=== PATIENT | male | born 1985 | race Caucasian/White ===

== ENCOUNTER 2021-02-23 08:18 | Emergency (ER) | payer MEDICAID, SELFPAY ==
--- NOTE | 2021-02-23 08:22 | ED.GENADUL_ITS ---
Discharge Plan Disposition Patient Disposition: HOME Condition: Stable Discharge Details Clinical Impression: Dental infection Primary Care Provider: Unknown,Unknown ED Provider: Chris Bowen Home Meds and New Rx's Prescriptions: New amoxicillin 875 mg tablet 875 mg PO BID Qty: 20 RF: 0 Continued citalopram 40 MG tablet 40 mg PO DAILY RF: 0 mirtazapine 30 MG tablet 30 mg PO DAILY RF: 0 buspirone 10 MG tablet 10 mg PO BID RF: 0 Discharge Instructions Instructions: Dental Abscess (ED) Additional Instructions: Amoxicillin as directed. Epmz-uep-scjungf Tylenol and/or Motrin as directed for discomfort. Cool and/or warm compresses every 2 hours for 20 minutes. Salt water swish and spit as tolerated. Please watch for new or worsening symptoms and return to the ER for any concerns. I am giving you our dental list, please contact all the dentist on this list and be seen as soon as possible. Stand Alone Forms: Work Release Medical Decision Making 35-year-old male, former smoker, poor dentition at baseline, presenting with left lower jaw swelling and pressure over the past couple of days. Unable to be seen by a dentist. Clinically he appears well, nontoxic. He is afebrile, no evidence of trismus, airway is patent. There is no drainable abscess at the moment. Will place on amoxicillin twice daily for the next 10 days, give dental referral, and encourage sprr-lgz-iuphgnl medication such as Tylenol and/or Motrin. Standard discharge and return precautions given. Patient is comfortable with this plan and has no additional questions or concerns. Medical Records Medical records reviewed: Yes I reviewed the patient's medical records. HPI General Mode of arrival: ambulatory . Date/Time Provider Initiated Documentation: 02/23/21 08:22 . Limitations to Documentation: no limitations . Information obtained by: patient . HPI Narrative: This is a 35-year-old male, denies significant past medical history, quit smoking approximately 3 months ago, admits to poor dentition at baseline. He states that he is unable to see a dentist as they are all booking out too far in advance. He states over the past couple of days he has noticed some jaw and facial swelling and mild pressure to his left front molar. He denies any fever, difficulty speaking, swallowing, fou l taste in his mouth or pointing abscess. He has not taken any qpja-bsx-jzhincg medication for his symptoms. He is simply concerned that he may need an antibiotic. Related Data Home Medications Medication Instructions Recorded Confirmed buspirone 10 mg PO BID tab 03/01/14 citalopram 40 mg PO DAILY tab 03/01/14 mirtazapine 30 mg PO DAILY tab 03/01/14 amoxicillin 875 mg PO BID #20 tab 02/23/21 Previous Rx's Medication Instructions Recorded amoxicillin 875 mg PO BID #20 tab 02/23/21 Allergies Allergy/AdvReac Type Severity Reaction Status Date / Time No Known Allergies Allergy Unverified 02/23/21 08:28 Review of Systems Constitutional Constitutional: Denies fever(s) and Denies headache(s) ENT Ears, Nose, Mouth, and Throat: Denies headache(s), Denies neck pain and Denies sore throat Musculoskeletal Musculoskeletal: Denies neck pain Integumentary/Breasts Skin/Breast: Denies erythema Neurologic Neurologic: Denies headache(s) [facility] Medical History Anxiety Depression Insomnia related to another mental disorder Social History Smoking/Tobacco Use Status: Former Tobacco Use Smoking risk assessment performed?: Yes Alcohol Intake: never Drug use: Occasionally Substance use type: marijuana Do you feel safe at home: Yes Do you feel safe in your relationship?: Yes Exam Const General: cooperative, healthy appearing, comfortable and no acute distress Orientation: alert and awake HENWV Head: normal to inspection, normocephalic and atraumatic General nose exam: external nose normal Face and sinus: no tenderness Face images: 1. Mild left mandibular swelling. There is no warmth, erythema, induration or fluctuance. No pointing abscess. No tenderness. No evidence of trismus. No lymphadenopathy. Mouth: moist mucous membranes Teeth and gingiva: poor dentition Teeth image: 1. Point tenderness over tooth 19. Airway is patent. There is no pointing abscess. Poor dentition throughout Throat: posterior oropharynx normal Eyes General: appearance normal, both eyes and all related structures Conjunctivae: conjunctivae normal Neck Neck: normal visual inspection, full ROM, no lymphadenopathy, trachea midline, supple and nontender Resp Effort & Inspection: normal respiratory effort and able to speak in complete sentences Auscultation: clear to auscultation bilaterally Cardio Rate: regular rate Rhythm: regular rhythm Skin General skin exam: no rashes or lesions noted Neuro General: patient alert, patient awake, moves all extremities and no focal motor deficits Cognition: normal cognition Speech: speech normal Gait: normal gait Sensory Exam: no sensory deficits noted Psych Appearance: grossly normal Mental Status: mental status grossly normal
[2021-02-23 08:25] VITALS: BP 135/79; PULSE 67; RESP 18; O2SAT 98
[2021-02-23] MEDS: Amoxicillin 875 MG TAB PO (09:01)
== END 2021-02-23 09:02 | disposition home or self-care (01) ==
PROVIDERS: Emergency Provider Physician Assistant
DX: R22.0 Localized swelling, mass and lump, head (principal); K04.7 Periapical abscess without sinus
CPT/HCPCS: 99283

== ENCOUNTER 2021-05-25 15:46 | Emergency (ER) | payer MEDICAID, SELFPAY ==
[2021-05-25 15:50] VITALS: BP 182/82; PULSE 91; RESP 18; TEMP 36.8; O2SAT 97
--- NOTE | 2021-05-25 15:52 | ED.GENADUL_ITS ---
Discharge Plan Disposition Patient Disposition: HOME Condition: Stable Discharge Details Clinical Impression: Finger laceration, Open fracture of finger Primary Care Provider: Unknown,Unknown ED Provider: Ana Palma Home Meds and New Rx's Prescriptions: New cephalexin 500 mg capsule 500 mg PO QID 5 Days Qty: 20 RF: 0 Discharge Instructions Instructions: Finger Laceration (ED) Additional Instructions: Keep wound clean, dry, covered. Keep current dressing on for 24 hours then cover with bandaid or other sterile dressing after washing with running water. Monitor for signs of infection including redness, warmth, drainage, increased pain, fevers/chills. If you develop these or other new/worsening symptoms please seek care urgently once again. As we discussed, the flap may or may not fall off. If the flap falls off, it will likely be white and have no sensation. Please keep stitches in place, this will help allow skin underneath to heal from the inside out. Your x-ray shows possible fracture. Please continue with splint until reevaluated by orthopedics. Please take the antibiotics as prescribed. Please return in 10 days for reevaluation and suture removal. Discharge Data Discharge Date/Time-TO BE ENTERED AT DEPARTURE: 05/25/21 17:31 Medical Decision Making Patient is a pleasant ambidextrous 35 year old male presenting today with c/c of left thumb laceration. 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 Denies other injury at the time of the incident. On exam, patient appears anxious and uncomfortable. He has a flap laceration that is near complete amputation to distal left thumb. Skin blanched. No FB or debris noted. this does involve the nail. Patient and I discussed digital block. Discussed risks/benefits, he voices udnerstanding and wishes to proceed. Digital block was performed with good relief of pain. FINDINGS: Bones/joints: Transverse irregular lucency through the shaft of the distal phalanx of the 1st digit compatible with fracture. Soft tissues: Linear lucency through the soft tissues of the tip of the 1st digit compatible with history of laceration. IMPRESSION: 1. Transverse irregular lucency through the shaft of the distal phalanx of the 1st digit compatible with fracture. 2. Linear lucency through the soft tissues of the tip of the 1st digit compatible with history of laceration. Discussed findings with the patient. We discussed treatment options. I am concerned about the viability of the flap and discussed htis at length. In an attempt to save the flap as well as create a biological dressing, will stitch in place. He voices understanding and wishes to prceed. Please see procedure note. Wound was copiously irrigated and explored to base in a bloodless fiedl with tourniquet, no FB or debris noted. Patient tolerated this well. Dressing applied. Discussed wound care in depth. He will f/u with orthopedics regarding open fracture of distal phalanx. Advised on possible outcomes of the flap laceration. Strict return precautions were discussed. Splint applied which he will use until evaluated by orthopedics. Will start on abx for open fx. All of his questions and cocnerns were addressed, he is in agreement with this plan. HPI General Mode of arrival: ambulatory . Date/Time Provider Initiated Documentation: 05/25/21 15:52 . Limitations to Documentation: no limitations . Information obtained by: patient and RN notes reviewed . History of Present Illness 35 year old M presents to the emergency department with the chief complaint of left thumb laceration, described as severe, with intensity rated at 8. Quality is described as stabbing, and is localized to the left and upper extremity. Patient reports no radiation. Patient started expe riencing this minute(s) and it has been constant. Immobilization improves symptom(s), Movement worsens symptoms . Patient notes no other symptoms.. Patient did receive the following treatments prior to arrival, none Related Data Home Medications Medication Instructions Recorded Confirmed cephalexin 500 mg PO QID 5 Days #20 cap 05/25/21 Previous Rx's Medication Instructions Recorded cephalexin 500 mg PO QID 5 Days #20 cap 05/25/21 Allergies Allergy/AdvReac Type Severity Reaction Status Date / Time No Known Allergies Allergy Unverified 05/25/21 15:49 General PATRICIA: 4 Review of Systems Constitutional Constitutional: Reports as per HPI, Denies chills and Denies fever(s) Musculoskeletal Musculoskeletal: Reports as per HPI and Reports numbness Integumentary/Breasts Skin/Breast: Reports as per HPI Neurologic Neurologic: Reports as per HPI and Reports numbness PFSH Medical History Anxiety Depression Insomnia related to another mental disorder Social History Smoking/Tobacco Use Status: Former Tobacco Use Smoking risk assessment performed?: Yes Alcohol Intake: never Drug use: Occasionally Substance use type: marijuana Do you feel safe at home: Yes Do you feel safe in your relationship?: Yes Exam Const General: cooperative, healthy appearing, uncomfortable, no acute distress, well developed and anxious Nutritional Appearance: average body habitus and well nourished Orientation: alert and awake Resp Effort & Inspection: normal respiratory effort, able to speak in complete sentences and no respiratory distress Cardio Rate: regular rate Rhythm: regular rhythm Skin Trauma: laceration Neuro General: patient alert and patient awake Cognition: normal cognition Speech: speech normal Gait: normal gait Sensory Exam: no sensory deficits noted Extrem Hand/finger images: 1. Laceration runs horizontally across the thumb. Distal to the wound, skin is blanched. Sensation intact around this but not over the flap itself. Concerned for viability. Small amount of active bleeding. Psych Appearance: grossly normal and well kempt Mental Status: mental status grossly normal Speech and Movement: speech and movement normal Procedures Laceration Laceration 1: Site: hand Side (If applicable): left Size (cm): 4.5 Description: flap Depth: simple, single layer Local Anesthetic: Lidocaine 1% Amount of anesthesia used (mL): 10 Pre-repair: wound explored, irrigated extensively and deep structures intact Skin layer closed with: nylon Size (cm): 4-0 and 6-0 Number of sutures: 7 Technique: simple, interrupted
--- NOTE | 2021-05-25 16:00 | DI.RAD_ITS ---
Exam(s) XR THUMB LT EXAM: XR THUMB LT CLINICAL HISTORY: distal tip laceration TECHNIQUE: COMPARISON: No exams were available for comparison FINDINGS: Three views were obtained. There is bandage material which obscures bony detail. Possible nondispla christiano fracture of the tuft of the distal phalanx of the thumb noted, repeat radiographs without bandage material requested to differentiate fracture from artifact. IMPRESSION: RADIATION DOSE DELIVERED: Total DLP
--- NOTE | 2021-05-25 17:09 | DI.VRAD_ITS ---
PROCEDURE INFORMATION: Exam: XR Left Finger(s) Exam date and time: 05/25/2021 4:05 PM Age: 35 years old Clinical indication: Injury or trauma; Other: Laceration; Finger; Left; Thumb TECHNIQUE: Imaging protocol: XR Left fingers. Views: Minimum 2 views. COMPARISON: No relevant prior studies available. FINDINGS: Bones/joints: Transverse irregular lucency through the shaft of the distal phalanx of the 1st digit compatible with fracture. Soft tissues: Linear lucency through the soft tissues of the tip of the 1st digit compatible with history of laceration. IMPRESSION: 1. Transverse irregular lucency through the shaft of the distal phalanx of the 1st digit compatible with fracture. 2. Linear lucency through the soft tissues of the tip of the 1st digit compatible with history of laceration. Dictated and Authenticated by: Reggie Mustafa MD. Ordering:LANDY Perez MD
== END 2021-05-25 17:31 | disposition home or self-care (01) ==
PROVIDERS: Emergency Provider Physician Assistant
DX: S62.522B Displaced fracture of distal phalanx of left thumb, initial encounter for open fracture (principal); W26.0XXA Contact with knife, initial encounter; Y99.0 Civilian activity done for income or pay
CPT/HCPCS: 12002; 90471; 99284; 73140

== ENCOUNTER 2024-06-19 03:45 | Emergency (ER) | payer MEDICAID, SELFPAY ==
[2024-06-19] VITALS (50 sets, daily range): BP systolic 39–208; BP diastolic 23–129; PULSE 74–128; RESP 11–47; TEMP 33.1–35; O2SAT 97–99
--- NOTE | 2024-06-19 03:30 | RT.EKG_ITS ---
APPROVED REPORT Exam: Resting ECG Reason for Exam: ROSC Patient Location: E HR:97 bpm ECG Measurements Heart Rate 97 AXIS AK 130 P 71 QRSd 101 QRS 80 QT 412 T 81 QTc 523 Conclusion Sinus rhythm...normal P axis, V-rate 60- 99 ST elev, probable normal early repol pattern...ST elevation, age<55 Prolonged QT interval...QTc >488mS no ST segment or T wave abnormalitites to suggest occlusive [place]
--- NOTE | 2024-06-19 03:30 | DI.RAD_ITS ---
Exam(s) XR PORTABLE CHEST AP POST LINE EXAM: XR PORTABLE CHEST AP POST LINE CLINICAL HISTORY: ETT check TECHNIQUE: 2D digital imaging was performed. COMPARISON: No exams were available for comparison FINDINGS: The exam is limited by overlying monitoring leads. An endotracheal tube projects at the level of the clavicles. A left-sided central line tip projects in the upper right atrium. LUNGS: Grossly clear. No pleural abnormality seen. HEART: Normal size. AORTA: Normal diameter. BONES: Unremarkable for age. Soft tissues: Unremarkable. IMPRESSION: Status post placement of endotracheal tube and central line. DATA REPOSITORY: RADIATION DOSE DELIVERED:
--- NOTE | 2024-06-19 03:30 | DI.CT_ITS ---
Exam(s) CT HEAD CERVICAL SPINE WO EXAM: CT HEAD CERVICAL SPINE WO CLINICAL HISTORY: ROSC. TECHNIQUE: Imaging Protocol: Axial computed tomography images with coronal and sagittal reformatted images were created and reviewed COMPARISON: CT CT CHEST PE ABD PELVIS W from 06/19/2024 FINDINGS: Head CT Ventricles and Extra axial spaces: Normal in size and morphology for the patient's age. Hemorrhage: None. Cerebral parenchyma: No evidence of mass. Loss of normal lindsay-white differentiation could indicate d iffuse cerebral edema which could be secondary to hypoxia. Midline shift: None. Brainstem/Cerebellum: Normal. Calvarium: Normal. Visualized Paranasal sinuses/Mastoids: Clear. Soft tissues: Unremarkable. Cervical Spine CT BONES: Vertebral body heights are maintained. Alignment is normal. There is no evidence of acute frac ture. No significant degenerative disc changes and facet degenerative changes are seen . SOFT TISSUES: No paraspinal hematoma. The airway appears intact. No pneumothorax is seen at the lung apices. IMPRESSION: Head CT: Limited exam due to lack of pre contrast images. Diffuse cerebral edema is suspected. C-spine CT: no acute abnormality. RADIATION DOSE DELIVERED: 1,276.97mGy.cm Total DLP DATA REPOSITORY: All CT scans at this facility are submitted to the National Radiology Data Registry (NRDR) Dose Index Registry (DIR) with the [employer] (A[employer]). RADIATION OPTIMIZATION: All CT scans at this facility use at least one of these dose optimization te chniques: automated exposure control; mA and/or kV adjustment per patient size (includes targeted exa ms where dose is matched to clinical indication); or iterative reconstruction.
--- NOTE | 2024-06-19 03:33 | DI.CT_ITS ---
Exam(s) CT CHEST PE ABD PELVIS W EXAM: CT CHEST PE ABD PELVIS W CLINICAL HISTORY: ROSC. TECHNIQUE: Imaging Protocol: Axial computed tomography images with coronal and sagittal reformatted images were created and reviewed CONTRAST MATERIAL: Intravenous: Omnipaque 350 Contrast volume:100 ml Oral: / no COMPARISON: CR,XR XR PORTABLE CHEST AP POST LINE from 06/19/2024 FINDINGS: CHEST: Exam is somewhat limited by artifact by patient arm position. Tracheobronchial tree: Patent. Endotracheal tube in place 4 cm above the juana. Pulmonary parenchyma: Posterior dependent changes. Mild upper lobe ground-glass opacities, greater o n the left could indicate pneumonitis versus pulmonary edema.. Mild apical emphysematous changes. M ild apical scarring. Pleura: No effusion or pneumothorax. Mediastinum: Within normal limits. Aorta: Thoracic portion non-dilated. Pulmonary arteries: No visible emboli. Heart: No pericardial effusion. A left-sided central venous catheter is in place with the tip at t he junction of the SVC and right atrium. Bones: Unremarkable for age. No lytic or blastic lesions.No compression fractures. Soft tissues: Unremarkable. ABDOMEN and PELVIS: Liver: Periportal edema. Heterogeneous enhancement. No measurable mass. Gallbladder and biliary tract: No evidence of stones or wall thickening. No biliary dilatation. Pancreas: Normal density, no abnormal calcifications or inflammatory process. Spleen: Normal. Kidneys: Normal size, contour and axis. No radiodense stones. No obstructive uropathy. No suspicious masses seen. Adrenal glands: No masses seen. Aorta: Abdominal portion non-dilated. Lymph nodes: Within normal limits. Soft tissues: Unremarkable. Bladder: Morejon catheter in place. Bowel: Enhancement of small bowel wall which could be secondary to hypotension. No obstruction or kasey wel wall thickening. Peritoneal cavity: No ascites. No focal collection. No mesenteric inflammatory response. No free ai r. Bones: Unremarkable for age. Reproductive organs: Within normal limits. IMPRESSION: No evidence of pulmonary embolism. Posterior dependent changes in the lungs. Additional mild ground-glass opacities could represent pne umonitis versus pulmonary edema. No acute abnormality in the abdomen or pelvis. Enhancement of small bowel wall could be secondary to hypotension. Inhomogeneous enhancement of the liver is spur present as well. RADIATION DOSE DELIVERED: 551.82mGy.cm Total DLP DATA REPOSITORY: All CT scans at this facility are submitted to the National Radiology Data Registry (NRDR) Dose Index Registry (DIR) with the [employer] (ACR). RADIATION OPTIMIZATION: All CT scans at this facility use at least one of these dose optimization te chniques: automated exposure control; mA and/or kV adjustment per patient size (includes targeted exa ms where dose is matched to clinical indication); or iterative reconstruction.
[2024-06-19] MEDS: Normal Saline 1,000 ML 1000 ML IV (03:50)
[2024-06-19 03:59] LABS: BE (Venous) -17 mmol/L (-2-3); HCO3 (Venous) 16 mmol/L (23-28); O2 Sat (Venous) 98 %; TCO2 (Venous) 16 mmol/L (24-29); pO2 (Venous) 147 mmHg
--- NOTE | 2024-06-19 04:00 | RT.EKG_ITS ---
APPROVED REPORT Exam: Resting ECG Reason for Exam: code Patient Location: E HR:106 bpm ECG Measurements Heart Rate 106 AXIS RI 165 P 77 QRSd 111 QRS 82 QT 374 T 58 QTc 496 Conclusion Sinus tachycardia...rate> [address] depression, diffuse leads...ST <-0.03mV, ant/lat/inf Prolonged QT interval...QTc >488mS no ST segment or T wave abnormalitites to suggest occlusive [place]
[2024-06-19 04:04] LABS: Abs Immature Grans 0.57 10^3/uL (0.0-0.06); Absolute Basophil Count 0.06 10^3/uL (0.0-0.2); Absolute Eosinophil Count 0.12 10^3/uL (0.0-0.7); Absolute Lymphocyte Count 4.41 10^3/uL (1.2-3.4); Absolute Monocyte Count 0.27 10^3/uL (0.1-0.8); Absolute Neutrophil Count 4.27 10^3/uL (1.2-6.7); Basophils % 0.6 %; Eosinophils % 1.2 %; HCT 48.6 % (40.0-50.0); HGB 15.4 g/dL (13.5-17.5); Immature Grans % 5.9 %; Lymphocytes % 45.5 %; MCH 33.8 pg (27.0-33.0); MCHC 31.7 % (32.0-36.0); MCV 107 fL (80-95); MPV 9.3 fL (8.0-11.0); Monocytes % 2.8 %; Nucleated RBC 0.3 % (0.0-0.3); Platelet Count 272 10^3/uL (130-400); RBC 4.55 10^6/uL (4.36-5.78); RDW 11.3 % (11.8-14.1); RDW-SD 44.7 fL
[2024-06-19 04:05] LABS: Lactate 12.9 mmol/L (0.6-1.4); pCO2 (Venous) 76 mmHg (41-51); pH (Venous) 6.92 (7.31-7.41)
[2024-06-19] MEDS: Sodium Bicarbonate 50 MEQ/50 ML SYR IVP (04:05)
--- NOTE | 2024-06-19 04:15 | DI.RAD_ITS ---
Exam(s) XR PORTABLE CHEST AP POST LINE EXAM: XR PORTABLE CHEST AP POST LINE CLINICAL HISTORY: post line TECHNIQUE: 2D digital imaging was performed. COMPARISON: CR,XR XR PORTABLE CHEST AP POST LINE from 06/19/2024 FINDINGS: Exam is limited by overlying monitoring leads. An endotracheal tube is seen which lies at the level of the clavicles. A left sided central line is noted which projects in the upper right atrium. LUNGS: Grossly clear. No pleural abnormality seen. HEART: Normal size. AORTA: Normal diameter. BONES: Unremarkable for age. Soft tissues: Unremarkable. IMPRESSION: Status post placement of endotracheal tube and central line. DATA REPOSITORY: RADIATION DOSE DELIVERED:
[2024-06-19 04:28] LABS: Diff Comment RBC Morph Reviewed; Macrocytosis 1+
[2024-06-19] MEDS: Piperacillin/Tazobactam 3.375 GM VIAL (04:30)
[2024-06-19 04:35] LABS: ETHANOL BLOOD 26.3 mg/dL (<10)
[2024-06-19] MEDS: fentaNYL 1,000 MCG in Normal Saline 80 ML 7.5 MCG IV (04:36)
[2024-06-19 04:42] LABS: Acetaminophen < 2 ug/mL (10-30); Salicylate 4.8 mg/dL (<2.8)
[2024-06-19 04:44] LABS: ALT 609 U/L (16-63); Albumin 3.2 g/dL (3.4-5.0); Alkaline Phosphatase 79 U/L (46-116); Anion Gap 21.7 mmol/L (3-11); BUN 6 mg/dL (7-18); CO2 18.3 mmol/L (21.0-32.0); CREATININE 1.4 mg/dL (0.70-1.30); Calcium 8.7 mg/dL (8.5-10.1); Chloride 102 mmol/L (98-107); Estimated GFR 65.57 (mL/min/1.73m2); Glucose 126 mg/dL (74-106); Lipase 51 U/L (16-77); Magnesium 3.7 mg/dL (1.8-2.4); NT-proBNP 50 pg/mL (<300); Potassium 4.5 mmol/L (3.5-5.1); Sodium 142 mmol/L (136-145); Total Protein 6.5 g/dL (6.4-8.2); Troponin I 12 ng/L (4-76)
[2024-06-19 04:46] LABS: BE (Venous) -14 mmol/L (-2-3); HCO3 (Venous) 17 mmol/L (23-28); pCO2 (Venous) 57 mmHg (41-51); pO2 (Venous) 194 mmHg
[2024-06-19 04:46] LABS: Bilirubin Negative (Negative); Blood Large (Negative); Clarity Sl Cloudy (Clear); Glucose Negative (Negative); Ketones Negative (Negative); Leukocyte Esterase Negative (Negative); Nitrite Negative (Negative); Specific Gravity 1.025 (1.005-1.025)
[2024-06-19 04:50] LABS: pH (Venous) 7.08 (7.31-7.41)
[2024-06-19 04:51] LABS: Lactate 11.1 mmol/L (0.6-1.4)
[2024-06-19 05:01] LABS: O2 Sat (Venous) > 99 %
[2024-06-19 05:07] LABS: Troponin I 25 ng/L (4-76)
--- NOTE | 2024-06-19 05:08 | W.ED.GENAD ---
Discharge Plan Disposition Patient Disposition: Transfer-Acute Inpatient Care Specific Acute Inpt Facility: [facility] Condition: Critical Discharge Details Clinical Impression: Cardiac arrest, Anoxic brain injury, Metabolic acidosis, Shock Primary Care Provider: None,None ED Provider: Bobbi Subramanian Home Meds and New Rx's Prescriptions: No Action No Known Home Meds HPI General Mode of arrival: EMS. Date/Time Provider Initiated Documentation: 06/19/24 04:30. Limitations to Documentation: altered mental status. Information obtained by: EMS. HPI Narrative: Pt arrives as Eliseo Rose via EMS s/p cardiac arrest and ROSC. Per EMS, pt at home by lying down with vomit around him. Bystander CPR started, on fire department arrival pt was in aystole. Was given 4mg IN narcan, left distal femur IO placed. Given a total of 3 doses of code epinephrine by EMS as well as an addtional 2mg IO narcan. ROSC at 0319, sinus tachycardia at that time, initial BP 100/60. IGel placed; subsuqently displaced when moving patient and patient was then intubated with a 7.0 ETT with no medications. Total of 3 doses of 0.2mg 1:100,000 during transport for hypotension as well as 1L IVFB. Blood glucose for EMS 122. Last seen normal at 2200 last night. Related Data Home Medications ?Medication ?Instructions ?Recorded ?Confirmed Unknown [No Known Home Meds] 06/19/24 06/19/24 Allergies Allergy/AdvReac Type Severity Reaction Status Date / Time Unable to Assess Allergy Verified 06/19/24 05:44 General Stated Complaint: CodeBlue PATRICIA: 1 Review of Systems Narrative: UTO Exam Narrative Exam Narrative: General: Intubated, unresponsive. Head: Normocephalic, atraumatic Skin: No rashes, bruises, discolorations or abrasions. Neck: Trachea midline, ?No discolorations or edema. Neck supple. ENT: ?MMM.? Chest: No abrasions or ecchymosis. Chest symmetric with respirations. No crepitus. No step offs. Lungs are clear to auscultation bilaterally. Cardiac: ?RRR, no murmurs appreciated Resp: No respiratory distress. CTAB. Abd: ?Soft, non-distended, No ecchymosis or abrasions. : ?No suprapubic tenderness. Extremities: ?No deformities.? No peripheral edema. Left distal femur IO in place. Neurologic: GCS 3T. Pupils fixed, mid-dilated. Course Vital Signs Vital signs: Vital Signs Temperature 35.0 C L 06/19/24 04:28 Temperature 35.0 C L 06/19/24 04:28 Respiratory Effort Mechanically Ventilated 06/19/24 04:47 Pain Level 0 06/19/24 04:28 Lab/Test Results Lab/Test Results: Laboratory Tests Range/Units 06/19/24 06/19/24 06/19/24 03:55 04:28 04:42 WBC (4.4-10.8) 10^3/uL 9.70 RBC (4.36-5.78) 10^6/uL 4.55 Hgb (13.5-17.5) g/dL 15.4 Hct (40.0-50.0) % 48.6 MCV (80-95) fL 107 H MCH (27.0-33.0) pg 33.8 H MCHC (32.0-36.0) % 31.7 L RDW (11.8-14.1) % 11.3 L Plt Count (130-400) 10^3/uL 272 MPV (8.0-11.0) fL 9.3 Immature Gran % % 5.9 Neutrophils % % 44.0 Lymphocytes % % 45.5 Monocytes % % 2.8 Eosinophils % % 1.2 Basophils % % 0.6 Nucleated RBC % (0.0-0.3) % 0.3 Absolute Neutrophils (1.2-6.7) 10^3/uL 4.27 Absolute Lymphocytes (1.2-3.4) 10^3/uL 4.41 H Absolute Monocytes (0.1-0.8) 10^3/uL 0.27 Absolute Eosinophils (0.0-0.7) 10^3/uL 0.12 Absolute Basophils (0.0-0.2) 10^3/uL 0.06 RBC Morphology See Below Macrocytosis 1+ VBG pH (7.31-7.41) 6.92 L* 7.08 L* VBG pCO2 (41-51) mmHg 76 H* 57 H VBG pO2 mmHg 147 194 VBG HCO3 (23-28) mmol/L 16 L 17 L VBG Total CO2 (24-29) mmol/L 16 L VBG O2 Saturation % 98 > 99 VBG Base Excess (-2-3) mmol/L -17 L -14 L VBG Lactate (0.6-1.4) mmol/L 12.9 H* 11.1 H* Sodium (136-145) mmol/L 142 Potassium (3.5-5.1) mmol/L 4.5 Chloride (98-107) mmol/L 102 Carbon Dioxide (21.0-32.0) mmol/L 18.3 L Anion Gap (3-11) mmol/L 21.7 H BUN (7-18) mg/dL 6 L Creatinine (0.70-1.30) mg/dL 1.4 H Est GFR (CKD-EPI 2020) (mL/min/1.73m2) 65.57 Glucose (74-106) mg/dL 126 H Calcium (8.5-10.1) mg/dL 8.7 Magnesium (1.8-2.4) mg/dL 3.7 H Total Bilirubin (0.2-1.0) mg/dL 0.40 ALT (16-63) U/L 609 H Alkaline Phosphatase (46-116) U/L 79 Troponin I High Sens (4-76) ng/L 12 25 NT-Pro-B Natriuret Pep (<300) pg/mL 50 Total Protein (6.4-8.2) g/dL 6.5 Albumin (3.4-5.0) g/dL 3.2 L Lipase (16-77) U/L 51 Urine Color (Yellow) Yellow Urine Clarity (Clear) Sl Cloudy Urine pH (5-8) 7.0 Ur Specific Whitwell (1.005-1.025) 1.025 Urine Protein (Neg-Trace) mg/dL 100 H Urine Ketones (Negative) mg/dL Negative Urine Blood (Negative) Large H Urine Nitrite (Negative) Negative Urine Bilirubin (Negative) Negative Urine Urobilinogen (Up to 0.2) mg/dL 1.0 H Ur Leukocyte Esterase (Negative) Negative Urine Glucose (Negative) mg/dL Negative Salicylates (<2.8) mg/dL 4.8 Acetaminophen (10-30) ug/mL < 2 Ethyl Alcohol (<10) mg/dL 26.3 H Procedures Central Line Placement Left IJ: Time Out Performed: Yes Patient Placed on Monitor/Pulse Ox: Yes MD Prep: mask, gown and gloves Central Line Prep: Chlorhexidine scrub Ultrasound Used for Placement: Yes Central Line Lumen Inserted: triple Post Procedure: good blood return, all ports aspirated, flushed, capped and sutured in place with 2-0 silk Post Procedure X-Ray: tip of catheter in good position Patient Tolerated Procedure: well Complications: none Medical Decision Making 38yo M no previous medical hx arrives s/p cardiac arrest with ROSC in the field. Found unresponsive by his with vomitus present, LKN 2200 last night, reportedly had been feeling generally unwell the past few days with decreased PO intake. EMS: Pt initially in aystole, given 4mg IN narcan, 3 rounds of code-dose epinephrine and additional 2mg IO narcan through left femur IO, ROSC at 0319 with pt in sinus tachycardia with initial BP of 100/60. Igel placed after ROSC, displaced when patient moved and so was intubated with 7.0 ETT at that time. Received 3 doses of 0.2mg 1:100,000 epinephrine during transport for hypotension, as well as 1L IVFB. Blood glucose 122. -On arrival patient hypotensive; PIVs placed and patient started on epinephrine drip rapidly up-titrated to 30, as well as levophed which was up-titrated to 20. Received one amp of bicarb, additional 1L IVFB, central line placed in left IJ. GCS 3T, pupils fixed and mid-dilated. FAST negative, diffuse B-lines limit meaningful cardiac views. EKG with some slight ST elevations, overall not suggest of occlusive WI. Fingerstick blood glucose 120's. Bedside CXR shows adequate central line placement; ETT was advanced 2cm. Started on fentyl & propofol for sedation and transported to CT on vent 100% FiO2 RR18 [id number] PEEP 5, - CT with no large ICH, saddle pulmonary embolus, or abdominal free fluid on my view. Given history of malaise, vomitus, will cover for sepsis with zosyn/zyvox. -Labs as below, initial VBG with marked metabolic acidosis pH 6.9, lactate 12, CBC with no leukcotysosis or anemia, CMP with normal electrolytes, mildly elevated Cr at 1.4, and marked AST & ALT elevations at 1662 and 609. Mg also elevated at 3.7. Initial troponin and BNP normal. ETOH + at 26, tylenol and salicylate negative. UA suggestive of possible infection. Repeat EKG appears to be improving -BP rapidly improved and pressors with titrated off, CT head discussed with reading radiologist and concerning for diffuse anoxic brain injury. Given 2g IV keppra for seizure ppx. -Discussed with [facility] cardiology and ICU team; agree no STEMI/no indication for lytics, accepted to [facility] MICU under Dr. Dan. Recommended temperature management. Awaiting bed assignment -Pt subsequently noted to be hypertensive and tachycardiac with slight whole body tremors concerning for seizure. Given 8mg IV ativan, started on versed gtt. [facility] updated with concern for status epilepticus, advised 1mg/kg phenobarb which was given. -On reassessment tremors have ceased, though pt remains hypertensive and tachycardic. Propofol gtt@100, fentanyl @5, versed @0.4. VBG & lactate improving. -Transported via [facility] Imaging Data Radiologic Study: Imaging: CT Scan Radiologist's impression: Head: IMPRESSION: 1. Findings suggestive of acute hypoxic ischemic injury. 2. No acute intracranial hemorrhage Chest Abd/Pelvis: IMPRESSION: 1. No evidence of aortic dissection or pulmonary embolism. 2. Dependent atelectasis/infiltrate bilaterally and nonspecific ground-glass opacities which may reflect pulmonary edema. 3. Prominent enhancement of the small bowel which can be seen in the setting of hypotension. Lab Data Lab results reviewed: Yes I reviewed the patient's lab results. Labs: 06/19/24 04:28 Urine - Reflex from Ua Urine Culture - Pending 06/19/24 05:12 Blood Blood Culture - Pending 06/19/24 05:12 Blood Blood Culture - Pending Laboratory Tests Range/Units 06/19/24 06/19/24 06/19/24 03:55 04:28 04:42 WBC (4.4-10.8) 10^3/uL 9.70 RBC (4.36-5.78) 10^6/uL 4.55 Hgb (13.5-17.5) g/dL 15.4 Hct (40.0-50.0) % 48.6 MCV (80-95) fL 107 H MCH (27.0-33.0) pg 33.8 H MCHC (32.0-36.0) % 31.7 L RDW (11.8-14.1) % 11.3 L Plt Count (130-400) 10^3/uL 272 MPV (8.0-11.0) fL 9.3 Immature Gran % % 5.9 Neutrophils % % 44.0 Lymphocytes % % 45.5 Monocytes % % 2.8 Eosinophils % % 1.2 Basophils % % 0.6 Nucleated RBC % (0.0-0.3) % 0.3 Absolute Neutrophils (1.2-6.7) 10^3/uL 4.27 Absolute Lymphocytes (1.2-3.4) 10^3/uL 4.41 H Absolute Monocytes (0.1-0.8) 10^3/uL 0.27 Absolute Eosinophils (0.0-0.7) 10^3/uL 0.12 Absolute Basophils (0.0-0.2) 10^3/uL 0.06 RBC Morphology See Below Macrocytosis 1+ VBG pH (7.31-7.41) 6.92 L* 7.08 L* VBG pCO2 (41-51) mmHg 76 H* 57 H VBG pO2 mmHg 147 194 VBG HCO3 (23-28) mmol/L 16 L 17 L VBG Total CO2 (24-29) mmol/L 16 L VBG O2 Saturation % 98 > 99 VBG Base Excess (-2-3) mmol/L -17 L -14 L VBG Lactate (0.6-1.4) mmol/L 12.9 H* 11.1 H* Sodium (136-145) mmol/L 142 Potassium (3.5-5.1) mmol/L 4.5 Chloride (98-107) mmol/L 102 Carbon Dioxide (21.0-32.0) mmol/L 18.3 L Anion Gap (3-11) mmol/L 21.7 H BUN (7-18) mg/dL 6 L Creatinine (0.70-1.30) mg/dL 1.4 H Est GFR (CKD-EPI 2020) (mL/min/1.73m2) 65.57 Glucose (74-106) mg/dL 126 H Calcium (8.5-10.1) mg/dL 8.7 Magnesium (1.8-2.4) mg/dL 3.7 H Total Bilirubin (0.2-1.0) mg/dL 0.40 AST (15-37) U/L 1662 H ALT (16-63) U/L 609 H Alkaline Phosphatase (46-116) U/L 79 Troponin I High Sens (4-76) ng/L 12 25 NT-Pro-B Natriuret Pep (<300) pg/mL 50 Total Protein (6.4-8.2) g/dL 6.5 Albumin (3.4-5.0) g/dL 3.2 L Lipase (16-77) U/L 51 Urine Color (Yellow) Yellow Urine Clarity (Clear) Sl Cloudy Urine pH (5-8) 7.0 Ur Specific Whitwell (1.005-1.025) 1.025 Urine Protein (Neg-Trace) mg/dL 100 H Urine Ketones (Negative) mg/dL Negative Urine Blood (Negative) Large H Urine Nitrite (Negative) Negative Urine Bilirubin (Negative) Negative Urine Urobilinogen (Up to 0.2) mg/dL 1.0 H Ur Leukocyte Esterase (Negative) Negative Urine RBC (0-2) HPF 5-10 H Urine WBC (0-5) HPF 10-20 H Ur Epithelial Cells (Negative) HPF Negative Urine Crystals (Negative) HPF Few Amorphous Urine Bacteria (Negative) HPF Moderate Urine Casts (Negative) LPF 3-5 Coarse Granular Urine Mucus (Negative) Moderate Urine Other (Negative) Rare Renal Ur Culture Indicated? Yes Urine Glucose (Negative) mg/dL Negative Salicylates (<2.8) mg/dL 4.8 Acetaminophen (10-30) ug/mL < 2 Ethyl Alcohol (<10) mg/dL 26.3 H Range/Units 06/19/24 06:49 WBC (4.4-10.8) 10^3/uL RBC (4.36-5.78) 10^6/uL Hgb (13.5-17.5) g/dL Hct (40.0-50.0) % MCV (80-95) fL MCH (27.0-33.0) pg MCHC (32.0-36.0) % RDW (11.8-14.1) % Plt Count (130-400) 10^3/uL MPV (8.0-11.0) fL Immature Gran % % Neutrophils % % Lymphocytes % % Monocytes % % Eosinophils % % Basophils % % Nucleated RBC % (0.0-0.3) % Absolute Neutrophils (1.2-6.7) 10^3/uL Absolute Lymphocytes (1.2-3.4) 10^3/uL Absolute Monocytes (0.1-0.8) 10^3/uL Absolute Eosinophils (0.0-0.7) 10^3/uL Absolute Basophils (0.0-0.2) 10^3/uL RBC Morphology Macrocytosis VBG pH (7.31-7.41) 7.23 L VBG pCO2 (41-51) mmHg 43 VBG pO2 mmHg 136 VBG HCO3 (23-28) mmol/L 18 L VBG Total CO2 (24-29) mmol/L 16 L VBG O2 Saturation % 99 VBG Base Excess (-2-3) mmol/L -10 L VBG Lactate (0.6-1.4) mmol/L 6.4 H* Sodium (136-145) mmol/L Potassium (3.5-5.1) mmol/L Chloride (98-107) mmol/L Carbon Dioxide (21.0-32.0) mmol/L Anion Gap (3-11) mmol/L BUN (7-18) mg/dL Creatinine (0.70-1.30) mg/dL Est GFR (CKD-EPI 2020) (mL/min/1.73m2) Glucose (74-106) mg/dL Calcium (8.5-10.1) mg/dL Magnesium (1.8-2.4) mg/dL Total Bilirubin (0.2-1.0) mg/dL AST (15-37) U/L ALT (16-63) U/L Alkaline Phosphatase (46-116) U/L Troponin I High Sens (4-76) ng/L NT-Pro-B Natriuret Pep (<300) pg/mL Total Protein (6.4-8.2) g/dL Albumin (3.4-5.0) g/dL Lipase (16-77) U/L Urine Color (Yellow) Urine Clarity (Clear) Urine pH (5-8) Ur Specific Whitwell (1.005-1.025) Urine Protein (Neg-Trace) mg/dL Urine Ketones (Negative) mg/dL Urine Blood (Negative) Urine Nitrite (Negative) Urine Bilirubin (Negative) Urine Urobilinogen (Up to 0.2) mg/dL Ur Leukocyte Esterase (Negative) Urine RBC (0-2) HPF Urine WBC (0-5) HPF Ur Epithelial Cells (Negative) HPF Urine Crystals (Negative) HPF Urine Bacteria (Negative) HPF Urine Casts (Negative) LPF Urine Mucus (Negative) Urine Other (Negative) Ur Culture Indicated? Urine Glucose (Negative) mg/dL Salicylates (<2.8) mg/dL Acetaminophen (10-30) ug/mL Ethyl Alcohol (<10) mg/dL Quality:[facility] Health Related Social Needs: No Data to Display Critical Care Time Critical Care Time Critical Care Time: Yes Total Critical Care Time: 65 Attestation: Due to a high probability of clinically significant, life threatening deterioration, the patient required my highest level of preparedness to intervene emergently and I personally spent this critical care time directly and personally managing the patient. This critical care time included obtaining a history; examining the patient; pulse oximetry; ordering and review of studies; arranging urgent treatment with development of a management plan; evaluation of patient's response to treatment; frequent reassessment; and, discussions with other providers. This critical care time was performed to assess and manage the high probability of imminent, life-threatening deterioration that could result in multi-organ failure. It was exclusive of separately billable procedures and treating other patients? PFSH All Active Problems (Updated 06/19/24 @ 07:24 by Bobbi Subramanian MD) Shock (Acute) Metabolic acidosis (Acute) Anoxic brain injury (Acute) Cardiac arrest (Acute) Social History Smoking/Tobacco Use Status: Current every day Tobacco Type: cigarettes Smoking risk assessment performed?: Yes Alcohol Intake: current Alcohol Intake frequency: 0-2 drinks per day Alcohol type: beer Drug use: Daily Substance use type: marijuana POCUS Exam (ED) FAST Exam DATE OF EXAM: 06/19/24 TIME OF EXAM: 04:00 PROVIDER THAT PERFORMED THE STUDY: Bobbi Subramanian REASON FOR EXAM: Hypotension VISUALIZED STRUCTURES: Hepatorenal space, Pelvis, Pericardium, Perisplenic space and Other (IVC) structure: plethoric PERTINENT FINDINGS/IMPRESSION: no apparent abnormalities Limited Transthoracic Exam: Exam complete Limited Abdominal Exam: Exam complete Limited Retroperitoneal Exam: Exam complete
[2024-06-19 05:17] LABS: AST 1662 U/L (15-37)
[2024-06-19 05:18] LABS: Bacteria Moderate HPF (Negative); C & S Indicated? Yes; Casts 3-5 Coarse Granular LPF (Negative); Crystals Few Amorphous HPF (Negative); Epithelial Cells Negative HPF (Negative); Mucus Moderate (Negative); Other Cells Rare Renal (Negative)
[2024-06-19] MEDS: PROPOFOL 1,000 MG/100 ML BTL 4.5 MG IV (05:20)
[2024-06-19] MEDS: Omnipaque 350 MG/ML 100 ML BTL IJ (05:22)
[2024-06-19] MEDS: Normal Saline - Diluent 50 ML VIAL IJ (05:24)
[2024-06-19] MEDS: Normal Saline Flush 10 ML SYR IVP (05:26)
--- NOTE | 2024-06-19 05:30 | RT.EKG_ITS ---
APPROVED REPORT Exam: Resting ECG Reason for Exam: repeat, ROSC Patient Location: E HR:125 bpm ECG Measurements Heart Rate 125 AXIS UT 140 P 87 QRSd 122 QRS 60 QT 336 T 89 QTc 485 Conclusion Sinus tachycardia...rate> 99 Nonspecific intraventricular conduction delay...QRSd >115mS, not LBBB/RBBB Anteroseptal infarct, acute...ST >0.20mV, V1-V2 no ST segment or T wave abnormalitites to suggest occlusive MO
[2024-06-19] MEDS: levETIRAcetam 2,000 MG in Normal Saline 100 ML 400 MG IVPB (05:33)
--- NOTE | 2024-06-19 05:48 | DI.VRAD_ITS ---
PROCEDURE INFORMATION: Exam: CT Head Without Contrast Exam date and time: 06/19/2024 4:45 AM Age: 33 years old Clinical indication: Unresponsive; Injury date: 06/19/24; Injury details: Rosc TECHNIQUE: Imaging protocol: Computed tomography of the head without contrast. Radiation optimization: All CT scans at this facility use at least one of these dose optimization techniques: automated exposure control; mA and/or kV adjustment per patient size (includes targeted exams where dose is matched to clinical indication); or iterative reconstruction. COMPARISON: No relevant prior studies available. FINDINGS: Brain: There is diffuse cerebral edema noted, concerning acute hypoxic ischemic injury. No acute intracranial hemorrhage. Cerebral ventricles: No ventriculomegaly. Paranasal sinuses: Visualized sinuses are unremarkable. No fluid levels. Mastoid air cells: Visualized mastoid air cells are well aerated. Bones: Unremarkable. No acute fracture. Soft tissues: Unremarkable. IMPRESSION: 1. Findings suggestive of acute hypoxic ischemic injury. 2. No acute intracranial hemorrhage. 3. THIS REPORT CONTAINS FINDINGS THAT MAY BE CRITICAL TO PATIENT CARE. The findings were verbally communicated via telephone conference with KRISTEN COLLINS at 5:44 AM EDT on 06/19/2024. The findings were acknowledged and understood. PROCEDURE INFORMATION: Exam: CT Cervical Spine Without Contrast Exam date and time: 06/19/2024 4:45 AM Age: 33 years old Clinical indication: Found unresponsive; Injury date: 06/19/24; Injury details: Rosc TECHNIQUE: Imaging protocol: Computed tomography of the cervical spine without contrast. Radiation optimization: All CT scans at this facility use at least one of these dose optimization techniques: automated exposure control; mA and/or kV adjustment per patient size (includes targeted exams where dose is matched to clinical indication); or iterative reconstruction. COMPARISON: CR XR PORTABLE CHEST AP 06/19/2024 4:25 AM FINDINGS: Bones: No acute fracture. Normal alignment. No significant disc bulge or herniation. No severe spinal canal stenosis. No significant neural foraminal narrowing. Lungs: Lung apices demonstrate mild bullous emphysema apical scarring. Soft tissues: Frothy secretions noted within the pharynx. IMPRESSION: No acute fracture or listhesis. Dictated and Authenticated by: Amanda Hui MD. Ordering:ALFREDO Martines MD
[2024-06-19] MEDS: LINEZOLID 600 MG/300 ML BAG 300 MG IVPB (05:50)
--- NOTE | 2024-06-19 05:59 | DI.VRAD_ITS ---
Addendum created by Amanda Hui MD on 06/19/2024 6:01:30 AM EDT: Of note the endotracheal tube appears high in location measuring approximately 8 cm from the juana. Initial report created on 06/19/2024 5:59:10 AM EDT: PROCEDURE INFORMATION: Exam: XR Chest Exam date and time: 06/19/2024 4:21 AM Age: 38 years old Clinical indication: Device placement; Other: Intubation and central line; Patient HX: Ett check TECHNIQUE: Imaging protocol: Radiologic exam of the chest. Views: 1 view. COMPARISON: No relevant prior studies available. FINDINGS: Tubes, catheters and devices: A central line is noted in place. Lungs: There are slightly increased linear opacities noted throughout the bilateral lung reyes, greater on the left. No evidence of large solid consolidation. Pleural spaces: No pneumothorax. No pleural effusion. Heart/Mediastinum: Unremarkable. No cardiomegaly. Bones/joints: No evidence of acute osseous injury. Soft tissues: No significant subcutaneous soft tissue abnormality. IMPRESSION: 1. Slightly increased linear opacities in the bilateral lung reyes, which could be artifactual. However, consider mild pulmonary edema versus mild interstitial infection in the appropriate clinical setting. 2. No evidence of pneumothorax or large consolidation. Dictated and Authenticated by: Amanda Hui MD. Ordering:ALFREDO Martines MD
--- NOTE | 2024-06-19 06:07 | DI.VRAD_ITS ---
PROCEDURE INFORMATION: Exam: XR Chest Exam date and time: 06/19/2024 4:25 AM Age: 38 years old Clinical indication: Device placement; Ett readjustment TECHNIQUE: Imaging protocol: Radiologic exam of the chest. Views: 1 view. COMPARISON: CR XR PORTABLE CHEST AP 06/19/2024 4:21 AM FINDINGS: Tubes, catheters and devices: The endotracheal tube has been advanced and measures approximately 5 cm from the juana, in proper position. A central line is noted in place. Lungs: Increased interstitial markings again noted. Pleural spaces: No pleural effusion. No pneumothorax. Heart/Mediastinum: No cardiomegaly. Bones/joints: Unremarkable. IMPRESSION: 1. Endotracheal tube has been adjusted and appears in proper position. 2. Other findings unchanged. Dictated and Authenticated by: Amanda Hui MD. Ordering:ALFREDO Martines MD
--- NOTE | 2024-06-19 06:14 | TELEP.MEDREC ---
Date of service: 06/19/24 Time of Service: 06:15 Telepharmacy Home Med Rec Allergies Allergies: Unable to Assess Allergy (Verified 06/19/24 05:44) Interview Person Interviewed: Pt was a Code Blue, unable to interview Additional Notes Additional Notes: [employer] data was reviewed and returned no results. No known home medications with information obtainable at this time. Recommended Changes Attestation: The home medication list is now updated to the best of my knowledge and is ready to be reconciled by the provider. Please contact the [facility] Medication Reconciliation Pharmacist at for any questions.
--- NOTE | 2024-06-19 06:26 | DI.VRAD_ITS ---
PROCEDURE INFORMATION: Exam: CTA Chest With Contrast CTA Abdomen and Pelvis With Contrast Exam date and time: 06/19/2024 4:57 AM Age: 38 years old Clinical indication: Other: Unknown; Prior surgery; Surgery date: 6+ months; Surgery type: Femur; Patient HX: Rosc TECHNIQUE: Imaging protocol: Computed tomographic angiography of the chest with contrast. Exam focused on the arteries. Computed tomographic angiography of the abdomen and pelvis with contrast. Exam focused on the arteries. 3D rendering (Not supervised by radiologist): MIP and/or 3D reconstructed images were created by the technologist. Radiation optimization: All CT scans at this facility use at least one of these dose optimization techniques: automated exposure control; mA and/or kV adjustment per patient size (includes targeted exams where dose is matched to clinical indication); or iterative reconstruction. Contrast material: OMNIPAQUE 350; Contrast volume: 100 ml; Contrast route: INTRAVENOUS (IV); COMPARISON: CR XR PORTABLE CHEST AP 07/18/2024 04:25 FINDINGS: Tubes, catheters and devices: Endotracheal tube with the tip approximately 4 cm proximal to the juana. VASCULATURE: Pulmonary arteries: No evidence of pulmonary embolism. Aorta: Normal aorta without aneurysm or dissection. Celiac trunk and mesenteric arteries: No occlusion or significant stenosis. Renal arteries: No occlusion or significant stenosis. Right iliac arteries: No occlusion or significant stenosis. Left iliac arteries: No occlusion or significant stenosis. CHEST: Lungs: Dependent atelectasis/infiltrate bilaterally. Faint ground-glass opacities in the upper lungs bilaterally, left greater than right. Paraseptal emphysematous changes. Pleural spaces: No pleural effusion or pneumothorax. Heart: Unremarkable. No cardiomegaly. No pericardial effusion. ABDOMEN AND PELVIS: Liver: Periportal edema. Heterogeneous hepatic enhancement. Gallbladder and biliary ducts: Unremarkable. No calcified stones. No ductal dilation. Pancreas: Unremarkable. No mass. No ductal dilation. Spleen: Unremarkable. No splenomegaly. Adrenal glands: Unremarkable. No mass. Kidneys and ureters: Unremarkable. No solid mass. No hydronephrosis. Stomach and bowel: No evidence of bowel obstruction. Prominent enhancement of the small bowel mucosa. No significant mucosal thickening. Appendix: Normal appendix. Intraperitoneal space: Unremarkable. No free air. No significant fluid collection. Urinary bladder: Morejon catheter. Reproductive: Unremarkable as visualized. Lymph nodes: Unremarkable. No enlarged lymph nodes. Bones/joints: Right femoral hardware. No acute fracture. Soft tissues: Unremarkable. IMPRESSION: 1. No evidence of aortic dissection or pulmonary embolism. 2. Dependent atelectasis/infiltrate bilaterally and nonspecific ground-glass opacities which may reflect pulmonary edema. 3. Prominent enhancement of the small bowel which can be seen in the setting of hypotension. Dictated and Authenticated by: Juan Degroot MD. Ordering:ALFREDO Martines MD
[2024-06-19 06:51] LABS: BE (Venous) -10 mmol/L (-2-3); HCO3 (Venous) 18 mmol/L (23-28); O2 Sat (Venous) 99 %; TCO2 (Venous) 16 mmol/L (24-29); pCO2 (Venous) 43 mmHg (41-51); pH (Venous) 7.23 (7.31-7.41); pO2 (Venous) 136 mmHg
[2024-06-19 06:55] LABS: Lactate 6.4 mmol/L (0.6-1.4)
[2024-06-19] MEDS: LORazepam 2 MG/ML VIAL 4 MG IVP ×2 (07:05)
[2024-06-19 07:18] LABS: Troponin I 82 ng/L (4-76)
[2024-06-19] MEDS: PHENobarbital 130 MG/ML VIAL 60 MG IVP (07:21)
[2024-06-19] MEDS: Normal Saline 100 ML ×3 (07:23→08:10)
[2024-06-19] MEDS: MIDAZOLAM 50 MG in Normal Saline 90 ML 60 MG IV (07:31)
[2024-06-19] MEDS: EPINEPHrine 1 MG/ML AMP pres-free (08:09)
[2024-06-19] MEDS: PROPOFOL 1,000 MG/100 ML BTL 1000 MG (08:10)
[2024-06-19 11:34] LABS: *AMPHETAMINES SCREEN URINE Negative (Negative); *BARBITURATES SCREEN URINE Negative (Negative); *BENZODIAZEPINES SCREEN URINE Negative (Negative); Cannabinoids THC Positive (Negative); Cocaine Screen,Urine Positive (Negative); OPIATES URINE SCREEN Negative (Negative); Tricyclic Antidepressants Negative (Negative)
--- NOTE | 2024-06-19 11:41 | NUR.NOTE ---
Nursing Note: this RN went on transfer to [facility] with [facility]. Uneventful motor transport inspector increased prop to 120 mcg/kg patient VS stable. please see chart for VS
--- NOTE | 2024-06-19 12:02 | NUR.NOTE ---
[facility] called asking for a urine drug screen on this patient. Per Dr. Rao I ordered the test. Tried faxing the result to [facility] but it would not go through. I gave the results verbally to LINDA Jones at [facility] No. at 1200. Nursing Note:
== END 2024-06-19 08:09 | disposition short-term general hospital (02) ==
PROVIDERS: Emergency Provider Student in an Organized Health Care Education/Training Program
DX: I46.9 Cardiac arrest, cause unspecified (principal); G93.1 Anoxic brain damage, not elsewhere classified; E87.21 Acute metabolic acidosis; R57.9 Shock, unspecified; R00.0 Tachycardia, unspecified; F17.210 Nicotine dependence, cigarettes, uncomplicated
CPT/HCPCS: 36415; 36573; 71045; 71275; 74177; 76604; 76705; 76857; 80053; 80307; 82805; 82962; 83690; 87040; 93005; 96361; 96365; 96366; 96368; 96375; 99291; 70450; 72125; 80320; 80329; 81003; 81015; 83605; 83735; 83880; 84484; 85025; 87086; 93010; J0171; J1953; J2020; J2060; J2250; J2543; J2560; J2704; J3010; J3490